=== PATIENT | male | born 1930 | race Two or more races ===

== ENCOUNTER 2019-08-18 15:53 | Emergency (ER) | payer OTHER, MEDICAID ==
[~2019-08-18] VITALS: Ht 167.6 cm; Wt 71.7 kg
[2019-08-18 17:16] LABS: Basophils # (auto) 0.1 uL; Basophils % (auto) 0.6 % (0.0-2.0); Eosinophils # (auto) 0.1 uL; Eosinophils % (auto) 1.4 % (0.0-7.0); Hematocrit 36.1 % (41.0-53.0); Hemoglobin 12.1 g/dL (13.5-17.5); Lymphocytes % (auto) 18.8 % (10.0-50.0); Mean Corpuscular Hemoglobin 29.6 pg (28.0-32.0); Mean Corpuscular Hgb Conc. 33.5 g/dL (32.0-36.0); Mean Corpuscular Volume 88.4 fL (80.0-100.0); Monocytes # (auto) 1.2 uL; Monocytes % (auto) 11.3 % (0.0-12.0); Neutrophils # (auto) 7.2 uL; Neutrophils % (auto) 67.9 % (37.0-80.0); Platelet Count (auto) 283 10^3/uL (140-450); Red Blood Cells 4.09 10^6/uL (4.5-5.90); Red Cell Distribution Width 17.2 % (11.8-14.3); White Blood Cell 10.6 10^3/uL (4.4-10.8)
[2019-08-18 17:28] LABS: Albumin 3.2 g/dL (3.4-5.0); Calcium 8.6 mg/dL (8.5-10.1); Potassium 4.5 mmol/L (3.5-5.1)
[2019-08-18 17:33] LABS: BUN/Creatinine Ratio 18.2; Bilirubin, Total 0.4 mg/dL (0.2-1.0); Total Protein 8.1 g/dL (6.4-8.2)
[2019-08-18] MEDS ORDERED: ASPirin 81 mg TAB PO ONE (17:45)
[2019-08-18] MEDS ORDERED: MORPHINE SULF INJ 2 MG/ML SYRINGE 1ML IV ONE (18:15)
[2019-08-18] MEDS ORDERED: ONDANSETRON HCL 4 MG/2 ML VIAL IV ONE (18:15)
[2019-08-18] MEDS ORDERED: KETOROLAC TROMETH 30 MG/ML 1ML VIAL IM ONE (20:15)
[2019-08-18 21:07] LABS: INR 0.98 (0.9-1.15); Partial Thromboplastin Time 27.8 sec (23.64-32.05)
[2019-08-18] MEDS ORDERED: NITROGLYCERIN 0.2MG/HR TOPICAL PATCH TD ONE (21:45)
[2019-08-18] MEDS ORDERED: SODIUM CHLORIDE 0.9% 250 ML IV ONE (23:00)
[2019-08-19] VITALS: BP 120/54
== END 2019-08-19 00:53 | disposition home or self-care (01) ==
LOC: ER 15:53
DX: I20.9 Angina pectoris, unspecified (principal); I25.2 Old myocardial infarction; Z98.61 Coronary angioplasty status
CPT/HCPCS: 36415; 71046; 80053; 84484; 85025; 85610; 85730; 96372; 96374; 96375; 99284; J1885; J2270; J2405; J7050